=== PATIENT | female | born 1980 | race Caucasian/White ===

== ENCOUNTER 2017-01-27 08:15 | Emergency (ER) | payer OTHER ==
--- NOTE | 2017-01-27 12:27 | ED CLINICAL REPORT ---
Clinical Report - Physicians/Mid Levels [facility] [address] [place] [address] 01/27/2017 8:19 Patient: RAS CHARLES Time Seen: 0823; initial patient contact. Arrived- By private vehicle. Historian- patient. HISTORY OF PRESENT ILLNESS Chief Complaint: ABDOMINAL PAIN. It is described as cramping. No radiation. It is described as generalized in location and located in the lower abdomen. This started last night. At its maximum, severity described as moderate. When seen in the E.D., severity described as mild. Modifying factors- (Improved w/ Oxycodone). Not worsened by anything. The patient has had nausea and loss of appetite. No vomiting or diarrhea. Similar symptoms previously: None. Recent medical care: Not recently seen/assessed. REVIEW OF SYSTEMS No constipation, black stools, hematemesis, difficulty with urination or pain with urination. No urinary frequency, fever, difficulty breathing or chills. She has had chest pain. All systems otherwise negative, except as recorded above. PAST HISTORY Knee pain. Back Pain. Endometriosis. Polycystic Ovary Disease. Diabetes Mellitus. Problems: Polycystic Ovary Disease. Knee pain. Back Pain. Endometriosis. Diabetes Mellitus. Surgeries: Single prior abdominal surgery: gall bladder surgery. Additional Surgeries: Back Surgery. Cyst removal. Gallbladder Surgery. Knee Surgery. Medications: Ibuprofen Oral. Lisinopril Oral. MetFORMIN HCl Oral. OxyCODONE HCl Oral. Allergies: Benadryl. SOCIAL HISTORY Former smoker, end date 12/2016. No alcohol use or drug use. ADDITIONAL NOTES The nursing notes have been reviewed. PHYSICAL EXAM Vital Signs: 01/27/2017 08:21 BP: 156/90. HR: 80. RR: 16. O2 saturation: 98%. Temp: 98.1 F. Pain level now: 8/10. Have been reviewed. Hypertensive. Heart rate normal. Respiratory rate normal. Temperature normal. Oxygen saturation normal. Appearance: Alert. Oriented X3. No acute distress. ENT: Dry mucous membranes present. CVS: Normal heart rate and rhythm. Heart sounds normal. Respiratory: No respiratory distress. Breath sounds normal. Abdomen: Soft. Moderate tenderness in the epigastric area and lower abdomen with guarding present. No rebound tenderness or Macdonald's, obturator or psoas sign present. Bowel sounds normal. No organomegaly. No mass. Back: No CVA tenderness. Skin: Skin warm and dry. Normal skin color. Extremities: No lower extremity edema. Neuro: Oriented X 3. LABS, X-RAYS, AND EKG EKG: EKG time: (0821). No acute process. No acute ischemia. Normal EKG. Normal sinus rhythm. Rate: 82. Normal P waves. Normal ESTHELA. Normal QRS complex. Normal axis. Normal ST and T waves, QT and QTc. Prior EKG unavailable. The study has been interpreted contemporaneously by me. The study has been independently viewed by me. The EKG appears to be a good tracing. Interpretation time: 820. Laboratory Tests: UA-Culture if indicated: (SABINA: 01/27/2017 10:00) ( [facility] 01/27/2017 10:39) Final results Test Result Flag Units (Reference) URINE COLOR YELLOW URINE APPEARANCE SL CLOUDY URINE GLUCOSE NEGATIVE (NEGATIVE) URINE BILIRUBIN NEGATIVE (NEGATIVE) URINE KETONE NEGATIVE (NEGATIVE) URINE SPECIFIC GRAVITY 1.015 (1.010-1.030) URINE PH 5.5 (5.0-8.0) URINE PROTEIN NEGATIVE (NEGATIVE) URINE UROBILINOGEN 0.2 EU/dL (0.2-1.0) URINE NITRITE NEGATIVE (NEGATIVE) URINE BLOOD NEGATIVE (NEGATIVE) URINE LEUK ESTERASE POSITIVE (NEGATIVE) URINE RBC NONE SEEN rbc/hpf (0-1) URINE WBC 10-15 wbc/hpf (0-1) URINE EPITHELIAL CELLS 3-5 EPI/hpf (0-5) URINE BACTERIA MODERATE (2+ TO 3+) (NONE SEEN) URINE COMMENT CULTURE INDICATED URINE CULTURES ARE SET-UP BASED ON THE FOLLOWING CRITERIA:POSITIVE NITRITEPOSITIVE LEUKOCYTE ESTERASEGREATER THAN 10 WHITE BLOOD CELLSMODERATE (2+) OR GREATER BACTERIA Urine: (SABINA: 01/27/2017 10:00) ( [facility] [place] [place]/27[place] 10:22) Final results Test Result Flag Units (Reference) URINE NEGATIVE CBC w Diff: (SABINA: 01/27/2017 08:30) ( MsgRcvd 01/27/2017 09:06) Final results Test Result Flag Units (Reference) WHITE BLOOD COUNT 8.8 K/uL (4.5-11.5) RED BLOOD COUNT 4.71 M/uL (4.00-5.20) HEMOGLOBIN 14.7 gm/dL (12.0-16.0) HEMATOCRIT 42.3 % (36.0-46.0) MEAN CELL VOLUME 90 fL (80-100) MEAN CORPUSCULAR HGB 31 pg (26-34) MEAN CORPUSCULAR HGB CONC 35 g/dL (31-37) RED CELL DISTRIBUTION WIDTH 13.1 % (11.6-14.8) PLATELET COUNT 153 K/uL (150-400) NEUTROPHIL % 58.5 % (50-75) LYMPH % 35.2 % (25-40) MONO % 4.8 % (3-14) EOSINOPHIL % 1.2 % (0-4) BASOPHIL % 0.3 % (0-2) CMP: (SABINA: 01/27/2017 08:30) ( MsgRcvd 01/27/2017 09:25) Final results Test Result Flag Units (Reference) GLUCOSE 153 H mg/dL (70-110) BUN 9 mg/dL (7-18) CREATININE 0.7 mg/dL (0.6-1.3) Estimated GFR >60 mL/min Estimated GFR- >60 mL/min Note: Persistent reduction over 3 months in eGFR<60 mL/min/1.73 m2 defines CKD. Patients with eGFR values>=60 mL/min/1.73 m2 may also have CKD if evidence ofpersistent proteinuria. Additional information may be foundat www.kidney.org. SODIUM 140 mmol/L (136-145) POTASSIUM 3.7 mmol/L (3.5-5.1) CHLORIDE 106 mmol/L (98-107) CARBON DIOXIDE 25 mmol/L (21-32) CALCIUM 8.6 mg/dL (8.5-10.1) TOTAL PROTEIN 6.8 g/dL (6.4-8.2) ALBUMIN 3.6 g/dL (3.3-5.0) BILIRUBIN, TOTAL 0.4 mg/dL (0.0-1.0) ALKALINE PHOSPHATASE 114 U/L (46-116) AST (SGOT) 26 U/L (15-37) ALT (SGPT) 54 U/L (12-78) LIPASE 168 U/L (73-393) AMYLASE 23 L U/L (25-115) . PROGRESS AND PROCEDURES Course of Care: Patient is stable. Patient/family counseled. Old medical records reviewed. Disposition: Discharged. Condition: stable. CLINICAL IMPRESSION Vomiting with nausea. Acute urinary tract infection with cystitis. INSTRUCTIONS No driving or operating machinery while taking medication. Drink plenty of fluids. Warnings: Further evaluation is necessary. GENERAL WARNINGS: Return or contact your physician immediately if your condition worsens or changes unexpectedly, if not improving as expected, or if other problems arise. Prescription Medications: Zofran 4 mg: Take 1 orally every six hours as needed for nausea/vomiting. Dispense ten (10). No refills. Substitution is permissible. Cipro 500 mg: take 1 tab orally every 12 hours for 10 days. Dispense twenty (20). No refills. Substitution is permissible. Follow-up: Follow up with your doctor tomorrow. Call for an appointment. Understanding of the discharge instructions verbalized by patient and family. (Electronically signed by Teodoro Juares MD 01/28/2017 18:58)
--- NOTE | 2017-01-27 12:27 | ED NURSING NOTES ---
Clinical Report - Nurses [facility] [address] [place] [address] 01/27/2017 8:19 Patient: RAS CHARLES TRIAGE Triage time 08:15. Acuity: LEVEL 3. Chief Complaint: (Nausea, vomiting, sore throat "from vomiting", anterior chest pain, chills, denies fever. Onset of sx today at 0700 upon waking.). SEPSIS SCREEN: Sepsis Screen. Negative (no infection suspected/documented). DONNIE COMA SCORE: [place] Coma Scale: 15- eyes open spontaneously (4); best verbal response- oriented x 4 (5); best motor response- obeys commands (6). --08:48 Jay Gregorio R.N. 08:21 01/27/17. BP: 156/90. HR: 80. RR: 16 (regular). O2 saturation: 98%. Temp: 98.1 F. Pain level now: 02/24. --08:48 Jay Gregorio R.N. Weight: 93.4 kg stated. Height/Length: 68 inches Per Patient. BMI: 31.3. --08:33 Jay Gregorio R.N. Medications OxyCODONE HCl Oral. --08:29 Jay Gregorio R.N. MetFORMIN HCl Oral. --08:29 Jay Gregorio R.N. Lisinopril Oral. --08:30 Jay Gregorio R.N. Ibuprofen Oral. --08:30 Jay Gregorio R.N. Allergies Benadryl. --08:30 Jay Gregorio R.N. History Arrived by private vehicle. Historian: patient. Accompanied by family. Treatment SENIOR RISK MANAGER: None. PAST MEDICAL HX: Immunizations: status is unknown. Last normal menstrual period- Pt states LMP was "a few months ago". No contraception. SOCIAL HX: Light tobacco smoker (Pt states she was a heavy smoker one month ago). No alcohol use or drug use. ABUSE ASSESSMENT: No report of abuse. --08:48 Jay Gregorio R.N. PROBLEMS: Knee pain. Back Pain. Endometriosis. --08:32 Jay Gregorio R.N. Polycystic Ovary Disease. --08:35 Jay Gregorio R.N. Diabetes Mellitus. --08:47 Jay Gregorio R.N. The following entry was modified by Jay Gregorio R.N., 08:35 <<STRICKEN ENTRY-- Diabetes Mellitus. --08:30 Jay Gregorio R.N. --END STRIKE>>. ADDITIONAL SURGERIES: Back Surgery. Cyst removal. Gallbladder Surgery. Knee Surgery. --08:32 Jay Gregorio R.N. Interventions ID band on patient. To treatment room. --08:48 Jay Gregorio R.N. PHYSICAL ASSESSMENT To room via wheelchair. GENERAL / NEURO / PSYCH: Alert. Oriented X 4. Appears in pain and anxious. HEENT: Pupils equal, round and reactive to light. No facial asymmetry noted. Mucous membranes are pink. RESPIRATORY: Respirations not labored. Chest wall tenderness. Breath sounds within normal limits. CVS: Capillary refill less than 2 seconds. Pulses within normal limits. GI / : ( nausea, dry heaves). Abdomen soft and normal bowel sounds. Abdominal tenderness diffusely. No abdominal distention. SKIN: Skin is warm and dry. Normal skin turgor. --08:50 Jay Gregorio R.N. NURSING PROGRESS NOTES 08:30 01/27/2017 Site #1 started via IV in the left forearm with an 20g angiocath; two attempts. Blood drawn: rainbow set. Labeled in the presence of the patient and sent to the lab. Saline lock flushed with 10 mL saline. --08:38 Jay Gregorio R.N. 08:38 01/27/17. Finger stick glucose: 152; performed by nurse. Patient gowned. Head of bed elevated. Reassurance given. Two patient identifiers checked. Call light placed in reach. Bed placed in lowest position. Brakes of bed on. Patient ready for evaluation- chart flagged. --08:50 Jay Gregorio R.N. library monitor, pulse oximeter and NIBP monitor placed on patient; monitoring specialist- Lead II and V1; monitor alarms on. --09:04 Jay Gregorio R.N. 09:12 01/27/2017 Started bag #1 1000 mL IV Fluids IV NS (Saline); bolus of 1000 mL over 45 minute(s) via site #1. Allergies verified and confirmed 5 rights. IV patency established. IV site checked: no pain, redness, or swelling. IV flushed thoroughly pre- and post-medication administration. --09:14 Jay Gregorio R.N. 09:12 01/27/2017 Zofran (Ondansetron HCl) IVP 4 mg given over 1 minute(s) via site #1. Allergies verified and confirmed 5 rights. IV patency established. IV site checked: no pain, redness, or swelling. IV flushed thoroughly pre- and post-medication administration. IVP given by RN. --09:16 Jay Gregorio R.N. 10:13 01/27/2017 Zofran IVP Response: no adverse reaction pain is improving. Symptoms have improved the patient feels better. --10:13 Jay Gregorio R.N. EKG time: (820). EKG was ordered, performed by a tech and shown to the ED physician. --10:18 Jack Uriarte ER Tech1 10:30 01/27/2017 IV Fluids IV NS Discontinued: bag #1 completed. Total amount infused: 1000 mL. IV patency established. IV site checked: no pain, redness, or swelling. IV flushed thoroughly. --11:47 Jay Gregorio R.N. Cardiac rhythm: normal sinus rhythm. --14:55 Jay Gregorio R.N. 10:30 01/27/17. BP: 123/69. HR: 65. RR: 16. O2 saturation: 94% on room air. --14:55 Jay Gregorio R.N. 11:50 01/27/17. BP: 115/68. HR: 63. RR: 16. O2 saturation: 95% on room air. --14:56 Jay Gregorio R.N. 11:30 01/27/17. BP: 126/86. HR: 69. RR: 12. O2 saturation: 98% on room air. --14:57 Jay Gregorio R.N. [facility]-- 13:50 07/13/17. BP: 123/73. HR: 68. RR: 16. O2 saturation: 98% on room air. --14:59 Jay Gregorio R.N. --END STRIKE>> Correction. --15:00 Jay Gregorio R.N. 13:00 01/27/17. BP: 123/73. HR: 66. RR: 16. O2 saturation: 98%. --15:01 Jay Gregorio R.N. DISPOSITION / DISCHARGE 13:18. Departure time: 1318. Condition at departure: improved and stable. No learning barriers present. Discharge instructions provided and reviewed with the patient and spouse. Reviewed medication(s) side effects, precautions, dosing and course information. Prescription(s) given to the patient. Patient verbalized understanding. Written instructions provided in Nauruan. The patient was discharged by the physician. She was discharged home and accompanied by spouse. She left the Emergency Department ambulatory and via private vehicle. Spouse driving. --14:01 Ish Salazar R.N. 14:00 01/27/17. BP: 123/73. HR: 68. RR: 16. O2 saturation: 98% on room air. Temp: 98.2 F (oral). Pain level now /10. --14:01 Ish Salazar R.N. Locked/Released at 01/27/2017 15:01 by Jay Gregorio R.N.
--- NOTE | 2017-01-27 12:27 | ED ORDER SUMMARY ---
..... Patient: RAS CHARLES OrderSheet [facility] VisitID: [id number] [place] [address] 37y, F Registration Date/Time: 01/27/2017 ORDER SHEET Weight: 93.4 kg (stated) Allergies: Benadryl GENERAL ORDERS: CBC w Diff Urgent (08:55 01/27/2017 Duke Esquivel) (Ack 8:57 PWeiler ER Tech1) (9:06 PWeiler ER Tech1) (9:06 JSimbeck R.N.) CMP Urgent (08:55 01/27/2017 Duke Esquivel) (Ack 8:57 PWeiler ER Tech1) (9:06 PWeiler ER Tech1) (9:06 JSimbeck R.N.) UA-Culture if indicated Urgent (08:55 01/27/2017 Duke Esquivel) (Ack 8:57 PWeiler ER Tech1) (10:12 JSimbeck R.N.) Urine Urgent (08:55 01/27/2017 Duke Esquivel) (Ack 8:57 PWeiler ER Tech1) (10:12 JSimbeck R.N.) Amylase Urgent (08:55 01/27/2017 Duke Esquivel) (Ack 8:57 PWeiler ER Tech1) (9:06 PWeiler ER Tech1) (9:06 JSimbeck R.N.) Lipase Urgent (08:55 01/27/2017 Duke Esquivel) (Ack 8:57 PWeiler ER Tech1) (9:06 PWeiler ER Tech1) (9:06 JSimbeck R.N.) EKG - ER Stat (10:20 01/27/2017 PWeiler ER Tech1 per protocol) (10:20 PWeiler ER Tech1) MEDICATION ORDERS: IV FLUIDS: IV NS : initial bolus none -, then 1000 mL/hr for X1 (NOW) (08:55 01/27/2017 Duke Esquivel) (9:14 LACEYimbeck R.N.) Zofran IV 4 mg (NOW) (08:55 01/27/2017 Duke Esquivel) (9:16 Razia Robison) ORDER SHEET NOTES: [Electronically signed by Jay Gregorio R.N. (15:01 01/27/2017)] [Electronically signed by Teodoro Juares MD (18:58 01/28/2017)] [Electronically locked/signed by Jay Gregorio R.N. (15:01 01/27/2017)]
--- NOTE | 2017-01-27 12:27 | ED NURSING NOTES ---
Clinical Report - Nurses [facility] [address] [place] [address] 01/27/2017 8:19 Patient: RAS CHARLES TRIAGE Triage time 08:15. Acuity: LEVEL 3. Chief Complaint: (Nausea, vomiting, sore throat "from vomiting", anterior chest pain, chills, denies fever. Onset of sx today at 0700 upon waking.). SEPSIS SCREEN: Sepsis Screen. Negative (no infection suspected/documented). DONNIE COMA SCORE: [place] Coma Scale: 15- eyes open spontaneously (4); best verbal response- oriented x 4 (5); best motor response- obeys commands (6). --08:48 Jay Gregorio R.N. 08:21 01/27/17. BP: 156/90. HR: 80. RR: 16 (regular). O2 saturation: 98%. Temp: 98.1 F. Pain level now: 02/24. --08:48 Jay Gregorio R.N. Weight: 93.4 kg stated. Height/Length: 68 inches Per Patient. BMI: 31.3. --08:33 Jay Gregorio R.N. Medications OxyCODONE HCl Oral. --08:29 Jay Gregorio R.N. MetFORMIN HCl Oral. --08:29 Jay Gregorio R.N. Lisinopril Oral. --08:30 Jay Gregorio R.N. Ibuprofen Oral. --08:30 Jay Gregorio R.N. Allergies Benadryl. --08:30 Jay Gregorio R.N. History Arrived by private vehicle. Historian: patient. Accompanied by family. Treatment FASHION CONSULTANT SALES: None. PAST MEDICAL HX: Immunizations: status is unknown. Last normal menstrual period- Pt states LMP was "a few months ago". No contraception. SOCIAL HX: Light tobacco smoker (Pt states she was a heavy smoker one month ago). No alcohol use or drug use. ABUSE ASSESSMENT: No report of abuse. --08:48 Jay Gregorio R.N. PROBLEMS: Knee pain. Back Pain. Endometriosis. --08:32 Jay Gregorio R.N. Polycystic Ovary Disease. --08:35 Jay Gregorio R.N. Diabetes Mellitus. --08:47 Jay Gregorio R.N. The following entry was modified by Jay Gregorio R.N., 08:35 <<STRICKEN ENTRY-- Diabetes Mellitus. --08:30 Jay Gregorio R.N. --END STRIKE>>. ADDITIONAL SURGERIES: Back Surgery. Cyst removal. Gallbladder Surgery. Knee Surgery. --08:32 Jay Gregorio R.N. Interventions ID band on patient. To treatment room. --08:48 Jay Gregorio R.N. PHYSICAL ASSESSMENT To room via wheelchair. GENERAL / NEURO / PSYCH: Alert. Oriented X 4. Appears in pain and anxious. HEENT: Pupils equal, round and reactive to light. No facial asymmetry noted. Mucous membranes are pink. RESPIRATORY: Respirations not labored. Chest wall tenderness. Breath sounds within normal limits. CVS: Capillary refill less than 2 seconds. Pulses within normal limits. GI / : ( nausea, dry heaves). Abdomen soft and normal bowel sounds. Abdominal tenderness diffusely. No abdominal distention. SKIN: Skin is warm and dry. Normal skin turgor. --08:50 Jay Gregorio R.N. NURSING PROGRESS NOTES 08:30 01/27/2017 Site #1 started via IV in the left forearm with an 20g angiocath; two attempts. Blood drawn: rainbow set. Labeled in the presence of the patient and sent to the lab. Saline lock flushed with 10 mL saline. --08:38 Jay Gregorio R.N. 08:38 01/27/17. Finger stick glucose: 152; performed by nurse. Patient gowned. Head of bed elevated. Reassurance given. Two patient identifiers checked. Call light placed in reach. Bed placed in lowest position. Brakes of bed on. Patient ready for evaluation- chart flagged. --08:50 Jay Gregorio R.N. monitor and storage bin tender, pulse oximeter and NIBP monitor placed on patient; monitoring coordinator- Lead II and V1; monitor alarms on. --09:04 Jay Gregorio R.N. 09:12 01/27/2017 Started bag #1 1000 mL IV Fluids IV NS (Saline); bolus of 1000 mL over 45 minute(s) via site #1. Allergies verified and confirmed 5 rights. IV patency established. IV site checked: no pain, redness, or swelling. IV flushed thoroughly pre- and post-medication administration. --09:14 Jay Gregorio R.N. 09:12 01/27/2017 Zofran (Ondansetron HCl) IVP 4 mg given over 1 minute(s) via site #1. Allergies verified and confirmed 5 rights. IV patency established. IV site checked: no pain, redness, or swelling. IV flushed thoroughly pre- and post-medication administration. IVP given by RN. --09:16 Jay Gregorio R.N. 10:13 01/27/2017 Zofran IVP Response: no adverse reaction pain is improving. Symptoms have improved the patient feels better. --10:13 Jay Gregorio R.N. EKG time: (820). EKG was ordered, performed by a tech and shown to the ED physician. --10:18 Jack Uriarte ER Tech1 10:30 01/27/2017 IV Fluids IV NS Discontinued: bag #1 completed. Total amount infused: 1000 mL. IV patency established. IV site checked: no pain, redness, or swelling. IV flushed thoroughly. --11:47 Jay Gregorio R.N. Cardiac rhythm: normal sinus rhythm. --14:55 Jay Gregorio R.N. 10:30 01/27/17. BP: 123/69. HR: 65. RR: 16. O2 saturation: 94% on room air. --14:55 Jay Gregorio R.N. 11:50 01/27/17. BP: 115/68. HR: 63. RR: 16. O2 saturation: 95% on room air. --14:56 Jay Gregorio R.N. 11:30 01/27/17. BP: 126/86. HR: 69. RR: 12. O2 saturation: 98% on room air. --14:57 Jay Gregorio R.N. [facility]-- 13:50 07/13/17. BP: 123/73. HR: 68. RR: 16. O2 saturation: 98% on room air. --14:59 Jay Gregorio R.N. --END STRIKE>> Correction. --15:00 Jay Gregorio R.N. 13:00 01/27/17. BP: 123/73. HR: 66. RR: 16. O2 saturation: 98%. --15:01 Jay Gregorio R.N. DISPOSITION / DISCHARGE 13:18. Departure time: 1318. Condition at departure: improved and stable. No learning barriers present. Discharge instructions provided and reviewed with the patient and spouse. Reviewed medication(s) side effects, precautions, dosing and course information. Prescription(s) given to the patient. Patient verbalized understanding. Written instructions provided in Uzbek. The patient was discharged by the physician. She was discharged home and accompanied by spouse. She left the Emergency Department ambulatory and via private vehicle. Spouse driving. --14:01 Ish Salazar R.N. 14:00 01/27/17. BP: 123/73. HR: 68. RR: 16. O2 saturation: 98% on room air. Temp: 98.2 F (oral). Pain level now /10. --14:01 Ish Salazar R.N. Locked/Released at 01/27/2017 15:01 by Jay Gregorio R.N.
--- NOTE | 2017-01-27 12:27 | ED ORDER SUMMARY ---
..... Patient: RAS CHARLES OrderSheet [facility] VisitID: [id number] [place] [address] 37y, F Registration Date/Time: 01/27/2017 ORDER SHEET Weight: 93.4 kg (stated) Allergies: Benadryl GENERAL ORDERS: CBC w Diff Urgent (08:55 01/27/2017 Duke Esquivel) (Ack 8:57 PWeiler ER Tech1) (9:06 PWeiler ER Tech1) (9:06 JSimbeck R.N.) CMP Urgent (08:55 01/27/2017 Duke Esquivel) (Ack 8:57 PWeiler ER Tech1) (9:06 PWeiler ER Tech1) (9:06 JSimbeck R.N.) UA-Culture if indicated Urgent (08:55 01/27/2017 Duke Esquivel) (Ack 8:57 PWeiler ER Tech1) (10:12 JSimbeck R.N.) Urine Urgent (08:55 01/27/2017 Duke Esquivel) (Ack 8:57 PWeiler ER Tech1) (10:12 JSimbeck R.N.) Amylase Urgent (08:55 01/27/2017 Duke Esquivel) (Ack 8:57 PWeiler ER Tech1) (9:06 PWeiler ER Tech1) (9:06 JSimbeck R.N.) Lipase Urgent (08:55 01/27/2017 Duke Esquivel) (Ack 8:57 PWeiler ER Tech1) (9:06 PWeiler ER Tech1) (9:06 JSimbeck R.N.) EKG - ER Stat (10:20 01/27/2017 PWeiler ER Tech1 per protocol) (10:20 PWeiler ER Tech1) MEDICATION ORDERS: IV FLUIDS: IV NS : initial bolus none -, then 1000 mL/hr for X1 (NOW) (08:55 01/27/2017 Duke Esquivel) (9:14 LACEYimbeck R.N.) Zofran IV 4 mg (NOW) (08:55 01/27/2017 Duke Esquivel) (9:16 Razia Robison) ORDER SHEET NOTES: [Electronically signed by Jay Gregorio R.N. (15:01 01/27/2017)] [Electronically signed by Teodoro Juares MD (18:58 01/28/2017)] [Electronically locked/signed by Jay Gregorio R.N. (15:01 01/27/2017)]
--- NOTE | 2017-01-28 18:58 | ED MED RECONCILIATION SUMMARY ---
Patient: RAS CHARLES Medication Reconciliation Report Located [facility] VisitID: [id number] [address] [place] [address] 37y, F Registration Date/Time: 01/27/2017 Weight: 93.4 kg Height/Length: 68 in. BMI: 31.3 ALLERGIES: Benadryl The patient's Home Medications are listed below: THE FOLLOWING MEDICATIONS NEED TO BE RECONCILED: Ibuprofen Oral Lisinopril Oral MetFORMIN HCl Oral OxyCODONE HCl Oral The source(s) of the original Home Medication information: Not obtained. The following Medications were given to the patient in the Emergency Department: IV NS IV Fluids bolus 1000 mL over 45 minute(s), administered: 01/27/2017 9:12:00 AM Zofran [IVP] IVP 4 mg, administered: 01/27/2017 9:12:00 AM The following Medications were prescribed to the patient: Zofran 4 mg: Take 1 orally every six hours as needed for nausea/vomiting. Dispense ten (10). No refills. Substitution is permissible. -- Teodoro Juares MD Cipro 500 mg: take 1 tab orally every 12 hours for 10 days. Dispense twenty (20). No refills. Substitution is permissible. -- Teodoro Juares MD
--- NOTE | 2017-01-28 18:58 | ED MED RECONCILIATION SUMMARY ---
Patient: RAS CHARLES Medication Reconciliation Report [facility] VisitID: [id number] [address] [place] [address] 37y, F Registration Date/Time: 01/27/2017 Weight: 93.4 kg Height/Length: 68 in. BMI: 31.3 ALLERGIES: Benadryl The patient's Home Medications are listed below: THE FOLLOWING MEDICATIONS NEED TO BE RECONCILED: Ibuprofen Oral Lisinopril Oral MetFORMIN HCl Oral OxyCODONE HCl Oral The source(s) of the original Home Medication information: Not obtained. The following Medications were given to the patient in the Emergency Department: IV NS IV Fluids bolus 1000 mL over 45 minute(s), administered: 01/27/2017 9:12:00 AM Zofran [IVP] IVP 4 mg, administered: 01/27/2017 9:12:00 AM The following Medications were prescribed to the patient: Zofran 4 mg: Take 1 orally every six hours as needed for nausea/vomiting. Dispense ten (10). No refills. Substitution is permissible. -- Teodoro Juares MD Cipro 500 mg: take 1 tab orally every 12 hours for 10 days. Dispense twenty (20). No refills. Substitution is permissible. -- Teodoro Juares MD
--- NOTE | 2017-01-28 18:58 | ED MAR SUMMARY ---
..... Medication Administration Record [facility] [address] [place] [address] Patient: RAS CHARLES Visit ID: [id number] 37y, F Weight: 93.4 kg Height/Length: 68 in BMI: 31.3 ALLERGIES: Benadryl Start 09:12 01/27/2017 Jay Gregorio R.N., Stop 10:30 01/27/2017 Jay Gregorio R.N. Medication Administered: IV NS (SALINE), Dose: IV Fluids, Bolus: 1000 mL over 45 minute(s), Dispensed: 1000 mL bag, Site: #1 left forearm. Medication Ordered: IV NS : initial bolus none -, then 1000 mL/hr for X1 (NOW). Given 09:12 01/27/2017 Jay Gregorio R.N. Medication Administered: ZOFRAN [IVP] (ONDANSETRON HCL), Dose: 4 mg IVP over 1 minute(s), Site: #1 left forearm. Medication Ordered: Zofran IV 4 mg (NOW).
--- NOTE | 2017-01-28 18:58 | ED MAR SUMMARY ---
..... Medication Administration Record [facility] [address] [place] [address] Patient: RAS CHARLES Visit ID: [id number] 37y, F Weight: 93.4 kg Height/Length: 68 in BMI: 31.3 ALLERGIES: Benadryl Start 09:12 01/27/2017 Jay Gregorio R.N., Stop 10:30 01/27/2017 Jay Gregorio R.N. Medication Administered: IV NS (SALINE), Dose: IV Fluids, Bolus: 1000 mL over 45 minute(s), Dispensed: 1000 mL bag, Site: #1 left forearm. Medication Ordered: IV NS : initial bolus none -, then 1000 mL/hr for X1 (NOW). Given 09:12 01/27/2017 Jay Gregorio R.N. Medication Administered: ZOFRAN [IVP] (ONDANSETRON HCL), Dose: 4 mg IVP over 1 minute(s), Site: #1 left forearm. Medication Ordered: Zofran IV 4 mg (NOW).
--- NOTE | 2017-01-28 18:58 | ED DISCHARGE INSTRUCTIONS ---
Patient: RAS CHARLES General Instructions [facility] VisitID: [id number] [place] [address] 37y, F Registration Date/Time: 01/27/2017 Vomiting with nausea. Acute urinary tract infection with cystitis. INSTRUCTIONS No driving or operating machinery while taking medication. Drink plenty of fluids. Warnings: Further evaluation is necessary. GENERAL WARNINGS: Return or contact your physician immediately if your condition worsens or changes unexpectedly, if not improving as expected, or if other problems arise. Prescription Medications: Zofran 4 mg: Take 1 orally every six hours as needed for nausea/vomiting. Dispense ten (10). No refills. Substitution is permissible. Cipro 500 mg: take 1 tab orally every 12 hours for 10 days. Dispense twenty (20). No refills. Substitution is permissible. Follow-up: Follow up with your doctor tomorrow. Call for an appointment. Understanding of the discharge instructions verbalized by patient and family. ADDITIONAL INFORMATION Vomiting [6Yr-Adult] Vomiting is a common symptom that may be due to different causes. These include gastroenteritis ("stomach flu"), food poisoning and gastritis. There are other more serious causes of vomiting which may be hard to diagnose early in the illness. Therefore, it is important to watch for the warning signs listed below. The main danger from repeated vomiting is dehydration. This is due to excess loss of water and minerals from the body. When this occurs, body fluids must be replaced. Home Care: If symptoms are severe, rest at home for the next 24 hours. You may use acetaminophen (Tylenol) or ibuprofen (Motrin, Advil) to control fever, unless another medicine was prescribed. [NOTE : If you have chronic liver or kidney disease or ever had a stomach ulcer or GI bleeding, talk with your doctor before using these medicines.] (Aspirin should never be used in anyone under 18 years of age who is ill with a fever. It may cause severe liver damage.) Avoid tobacco and alcohol use, which may worsen your symptoms. If medicines for vomiting were prescribed, take as directed. Once vomiting stops, then follow these guidelines: During The First 12-24 Hours follow the diet below: FRUIT JUICES: Apple, grape juice, clear fruit drinks, and electrolyte replacement drinks. BEVERAGES: Soft drinks without caffeine; mineral water (plain or flavored), decaffeinated tea and coffee. SOUPS: Clear broth, consomm and bouillon DESSERTS: Plain gelatin, popsicles and fruit juice bars. As you feel better, you may add 6-8 ounces of yogurt per day. During The Next 24 Hours you may add the following to the above: Hot cereal, plain toast, bread, rolls, crackers Plain noodles, rice, mashed potatoes, chicken noodle or rice soup Unsweetened canned fruit (avoid pineapple), bananas Limit caffeine and chocolate. No spices or seasonings except salt. During The Next 24 Hours Gradually resume a normal diet, as you feel better and your symptoms lessen. Follow Up with your doctor as advised if you are not improving over the next 2-3 days. Get Prompt Medical Attention if any of the following occur: Constant right-sided lower abdominal pain or increasing general abdominal pain Continued vomiting (unable to keep liquids down) for 24 hours Frequent diarrhea (more than 5 times a day); blood (red or black color) or mucus in diarrhea Reduced urine output or extreme thirst Weakness, dizziness or fainting Unusually drowsy or confused Fever of 100.4F (38C) oral or higher, not better with fever medication Yellow color of the eyes or skin Ondansetron Oral disintegrating tablet What is this medicine? ONDANSETRON (on ADALID se annie) is used to treat nausea and vomiting caused by chemotherapy. It is also used to prevent or treat nausea and vomiting after surgery. How should I use this medicine? These tablets are made to dissolve in the mouth. Do not try to push the tablet through the foil backing. With dry hands, peel away the foil backing and gently remove the tablet. Place the tablet in the mouth and allow it to dissolve, then swallow. While you may take these tablets with water, it is not necessary to do so. Talk to your occupational therapy aide regarding the use of this medicine in children. Special care may be needed. What side effects may I notice from receiving this medicine? Side effects that you should report to your doctor or health senior resident care director as soon as possible: allergic reactions like skin rash, itching or hives, swelling of the face, lips, or tongue breathing problems dizziness fast or irregular heartbeat feeling faint or lightheaded, falls fever and chills swelling of the hands and feet tightness in the chest Side effects that usually do not require medical attention (report to your doctor or health senior resident care director if they continue or are bothersome): constipation or diarrhea headache What may interact with this medicine? Do not take this medicine with any of the following medications: -apomorphine -cisapride -dofetilide -dronedarone -pimozide -thioridazine -ziprasidone This medicine may also interact with the following medications: -carbamazepine -phenytoin -rifampicin -tramadol -other medicines that prolong the QT interval (cause an abnormal heart rhythm) What if I miss a dose? If you miss a dose, take it as soon as you can. If it is almost time for your next dose, take only that dose. Do not take double or extra doses. Where should I keep my medicine? Keep out of the reach of children. Store between 2 and 30 degrees C (36 and 86 degrees F). Throw away any unused medicine after the expiration date. What should I tell my health care provider before I take this medicine? They need to know if you have any of these conditions: heart disease history of irregular heartbeat liver disease low levels of magnesium or potassium in the blood an unusual or allergic reaction to ondansetron, granisetron, other medicines, foods, dyes, or preservatives or trying to get breast-feeding What should I watch for while using this medicine? Check with your doctor or health senior resident care director as soon as you can if you have any sign of an allergic reaction. Ciprofloxacin Hydrochloride Oral tablet What is this medicine? CIPROFLOXACIN (sip alvaro FLOX a sin) is a quinolone antibiotic. It is used to treat certain kinds of bacterial infections. It will not work for colds, flu, or other viral infections. How should I use this medicine? Take this medicine by mouth with a glass of water. Follow the directions on the prescription label. Take your medicine at regular intervals. Do not take your medicine more often than directed. Take all of your medicine as directed even if you think your are better. Do not skip doses or stop your medicine early. You can take this medicine with food or on an empty stomach. It can be taken with a meal that contains dairy or calcium, but do not take it alone with a dairy product, like milk or yogurt or calcium-fortified juice. A special MedGuide will be given to you by the pharmacist with each prescription and refill. Be sure to read this information carefully each time. Talk to your occupational therapy aide regarding the use of this medicine in children. Special care may be needed. What side effects may I notice from receiving this medicine? Side effects that you should report to your doctor or health senior resident care director as soon as possible: - allergic reactions like skin rash, itching or hives, swelling of the face, lips, or tongue - breathing problems - confusion, nightmares or hallucinations - feeling faint or lightheaded, falls - irregular heartbeat - joint, muscle or tendon pain or swelling - pain or trouble passing urine -persistent headache with or without blurred vision - redness, blistering, peeling or loosening of the skin, including inside the mouth - seizure - unusual pain, numbness, tingling, or weakness Side effects that usually do not require medical attention (report to your doctor or health senior resident care director if they continue or are bothersome): - diarrhea - nausea or stomach upset - white patches or sores in the mouth What may interact with this medicine? Do not take this medicine with any of the following medications: cisapride droperidol terfenadine tizanidine This medicine may also interact with the following medications: antacids caffeine cyclosporin didanosine (ddI) buffered tablets or powder medicines for diabetes medicines for inflammation like ibuprofen, naproxen methotrexate multivitamins omeprazole phenytoin probenecid sucralfate theophylline warfarin What if I miss a dose? If you miss a dose, take it as soon as you can. If it is almost time for your next dose, take only that dose. Do not take double or extra doses. Where should I keep my medicine? Keep out of the reach of children. Store at room temperature below 30 degrees C (86 degrees F). Keep container tightly closed. Throw away any unused medicine after the expiration date. What should I tell my health care provider before I take this medicine? They need to know if you have any of these conditions: -bone problems -cerebral disease -joint problems -irregular heartbeat -kidney disease -liver disease -myasthenia gravis -seizure disorder -tendon problems -an unusual or allergic reaction to ciprofloxacin, other antibiotics or medicines, foods, dyes, or preservatives - or trying to get -breast-feeding What should I watch for while using this medicine? Tell your doctor or health senior resident care director if your symptoms do not improve. Do not treat diarrhea with over the counter products. Contact your doctor if you have diarrhea that lasts more than 2 days or if it is severe and watery. You may get drowsy or dizzy. Do not drive, use machinery, or do anything that needs mental alertness until you know how this medicine affects you. Do not stand or sit up quickly, especially if you are an older patient. This reduces the risk of dizzy or fainting spells. This medicine can make you more sensitive to the sun. Keep out of the sun. If you cannot avoid being in the sun, wear protective clothing and use sunscreen. Do not use sun lamps or tanning beds/booths. Avoid antacids, aluminum, calcium, iron, magnesium, and zinc products for 6 hours before and 2 hours after taking a dose of this medicine. You have been given the following additional information: Vomiting (6Y-Adult) Ondansetron Oral disintegrating tablet Ciprofloxacin Hydrochloride Oral tablet No driving or operating machinery while taking medication. (Electronically signed by Teodoro Juares MD 01/28/2017 18:58)
== END 2017-01-27 13:18 | disposition home or self-care (01) ==
LOC: ED SRH 08:15
DX: N30.00 Acute cystitis without hematuria (principal); R11.2 Nausea with vomiting, unspecified; E11.9 Type 2 diabetes mellitus without complications; Z79.84 Long term (current) use of oral hypoglycemic drugs; Z79.899 Other long term (current) drug therapy; Z87.891 Personal history of nicotine dependence; Z88.8 Allergy status to other drugs, medicaments and biological substances
CPT/HCPCS: 90004; 90098; 90100; 90469; 92235; 92530; 93070; 95059